=== PATIENT | female | born 2000 | race Caucasian/White ===

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

== ENCOUNTER 2018-03-10 09:08 | Emergency (ER) | payer OTHER ==
[2018-03-10 09:40] VITALS: BP 106/56
[2018-03-10] MEDS ORDERED: Doxycycline (NF) 100 MG TAB PO ONE (10:09)
[2018-03-10] MEDS ORDERED: DOXYcycline CAP(*) 100 MG PO ONE (10:12)
--- NOTE | 2018-03-10 10:17 | ED ---
Bite Injury/Animal - HPI Summary HPI Summary: Complains of raised red itchy bump on the basis of left-sided neck starting last night. Nonpainful, purulent discharge. Patient went running in the [place] last night but Unknown if bug bite or not. History of strong skin reaction to bug bites. Denies fever, cough, sore throat, N/V, CP, SOB, ear pain, abdominal pain, body aches, change in urine or BM. No history is none. - History of Current Complaint Hx Obtained From: Patient, Family/Ash Kier Boiler Hx Last Menstrual Period: 02/22/18 Onset of Injury: Happened hours ago Severity Initially: Mild Pain Intensity: 0 Pain Scale Used: 0-10 Numeric Associated Signs And Symptoms: Positive: Negative <Dimitris Hernandez - Last Filed: 03/10/18 10:11> <Laney Llamas - Last Filed: 03/11/18 11:15> - History of Current Complaint Chief Complaint: [place] Stated Complaint: SKIN COMPLAINT Time Seen by Provider: 03/10/18 09:50 - Allergies/Home Medications Allergies/Adverse Reactions: Allergies Allergy/AdvReac Type Severity Reaction Status Date / Time No Known Allergies Allergy Unverified 03/10/18 09:31 Home Medications: Home Medications Cholecalciferol TAB* [Vitamin D TAB*] 1,000 unit PO DAILY 03/10/18 [History Confirmed 03/10/18] Cyanocobalamin TAB* [Vitamin B12 TAB*] 1,000 mcg PO DAILY 03/10/18 [History Confirmed 03/10/18] Haugen-3S/Dha/Epa/Fish Oil [Fish Oil Triple Strength] 1 cap PO DAILY 03/10/18 [ History Confirmed 03/10/18] PMH/Surg Hx/FS Hx/Imm Hx Endocrine/Hematology History: Denies: Hx Diabetes, Hx Thyroid Disease Cardiovascular History: Denies: Hx Hypertension, Hx Pacemaker/ICD Respiratory History: Denies: Hx Asthma, Hx Chronic Obstructive Pulmonary Disease (COPD) GI History: Denies: Hx Ulcer History: Denies: Hx Renal Disease Musculoskeletal History: Denies: Hx Rheumatoid Arthritis, Hx Osteoporosis Sensory History: Denies: Hx Hearing Aid Psychiatric History: Denies: Hx Panic Disorder Infectious Disease History: No Infectious Disease History: Denies: Hx Hepatitis, Hx Human Immunodeficiency Virus (HIV), Traveled Outside the [place] in Last 30 Days - Family History Known Family History: Positive: Unknown - Social History Alcohol Use: None Hx Substance Use: No Substance Use Type: Reports: None Hx Tobacco Use: No Smoking Status (MU): Never Smoked Tobacco <Dimitris Hernandez - Last Filed: 03/10/18 10:11> Review of Systems Constitutional: Negative Eyes: Negative ENT: Negative Cardiovascular: Negative Respiratory: Negative Gastrointestinal: Negative Genitourinary: Negative Musculoskeletal: Negative Skin: Negative Neurological: Negative Psychological: Normal All Other Systems Reviewed And Are Negative: Yes <Dimitris Hernandez - Last Filed: 03/10/18 10:11> Physical Exam - Summary Physical Exam Summary: Raised red bump at base of left neck with white center 2 cm x 1 cm. No purulent drainage. Nonfluctuant. Triage Information Reviewed: Yes Vital Signs On Initial Exam: Initial Vitals Temp Pulse Resp BP Pulse Ox 98.6 F 57 18 106/56 100 03/10/18 09:34 03/10/18 09:34 03/10/18 09:34 03/10/18 09:34 03/10/18 09:34 Vital Signs Reviewed: Yes Appearance: Positive: Well-Appearing Skin: Positive: Warm Head/Face: Positive: Normal Head/Face Inspection Eyes: Positive: Normal ENT: Positive: Normal ENT inspection Neck: Positive: Supple Respiratory/Lung Sounds: Positive: Clear to Auscultation Cardiovascular: Positive: Normal Abdomen Description: Positive: Nontender Musculoskeletal: Positive: Normal Neurological: Positive: Normal Psychiatric: Positive: Normal AVPU Assessment: Alert - Lit Coma Scale Best Eye Response: 4 - Spontaneous Best Motor Response: 6 - Obeys Commands Best Verbal Response: 5 - Oriented Coma Scale Total: 15 <Dimitris Hernandez - Last Filed: 03/10/18 10:11> Vital Signs On Initial Exam: Initial Vitals Temp Pulse Resp BP Pulse Ox 98.6 F 57 18 106/56 100 03/10/18 09:34 03/10/18 09:34 03/10/18 09:34 03/10/18 09:34 03/10/18 09:34 <Laney Llamas - Last Filed: 03/11/18 11:15> Diagnostics - Vital Signs Vital Signs Temp Pulse Resp BP Pulse Ox 03/10/18 09:34 98.6 F 57 18 106/56 100 <Dimitris Hernandez - Last Filed: 03/10/18 10:11> - Vital Signs Vital Signs Temp Pulse Resp BP Pulse Ox 03/10/18 09:34 98.6 F 57 18 106/56 100 <Laney Llamas - Last Filed: 03/11/18 11:15> Bite Injury Course/Dx - Course Course Of Treatment: We will cover tick bite possibility with prophylactic doxycycline. Patient states [place] is leaving the country today so will provide prescription for Keflex in case of cellulitis. Patient has been told to not start Keflex unless signs of cellulitis occur <Dimitris Hernandez - Last Filed: 03/10/18 10:11> <Laney Llamas - Last Filed: 03/11/18 11:15> - Diagnoses Provider Diagnosis: Bug bite Discharge - Sign-Out/Discharge Documenting (check all that apply): Discharge/Admit/Transfer - Billing Disposition and Condition Condition: STABLE Disposition: HOME <Dimitris Hernandez - Last Filed: 03/10/18 10:11> - Billing Disposition and Condition Condition: STABLE Disposition: HOME <Laney Llamas - Last Filed: 03/11/18 11:15> - Discharge Plan Condition: Stable Disposition: HOME Prescriptions: Cephalexin CAP* [Keflex CAP*] 500 mg PO TID 10 Days #30 cap Patient Education Materials: Lyme Disease (ED), Insect Bite or Sting (ED), Tick Bite (ED) Referrals: No Primary Care Phys,NOPCP [Primary Care Provider] - Additional Instructions: Take Keflex only if signs of cellulitis occur, including increasing redness, purulent discharge, fever, pain. Seek medical medical attention for any concerning symptoms Attestation Statement User Type: Provider - I was available for consult. This patient was seen by the RENEE. The patient was not presented to, seen by, or examined by me. -Rafiq <Laney Llamas - Last Filed: 03/11/18 11:15>
== END 2018-03-10 10:31 | disposition home or self-care (01) ==
LOC: UCEAST 09:08
DX: S10.96XA Insect bite of unspecified part of neck, initial encounter (principal); W57.XXXA Bitten or stung by nonvenomous insect and other nonvenomous arthropods, initial encounter; Y93.9 Activity, unspecified; Y92.9 Unspecified place or not applicable
CPT/HCPCS: 99212; A9270-GY; G0463

== ENCOUNTER 2019-03-25 08:44 | Emergency (ER) | payer OTHER ==
[2019-03-25 08:51] VITALS: BP 99/67
--- NOTE | 2019-03-25 09:23 | UC ---
Skin Complaint HPI - HPI Summary HPI Summary: 18-year-old woman comes in with a chief complaint of laceration to her left index finger. Just prior to arrival she was cutting an onion with a kitchen knife and slipped and accidentally cut the distal left index finger. Initially bled quite a bit direct pressure stopped the bleeding. No complaint of weakness or numbness. Patient reports she is up-to-date on her tetanus. - History of Current Complaint Chief Complaint: UCLaceration Time Seen by Provider: 03/25/19 09:11 Stated Complaint: FINGER LAC Hx Last Menstrual Period: 03/18/19 Pain Intensity: 6 - Allergy/Home Medications Allergies/Adverse Reactions: Allergies Allergy/AdvReac Type Severity Reaction Status Date / Time No Known Allergies Allergy Verified 03/25/19 08:51 PMH/Surg Hx/FS Hx/Imm Hx Previously Healthy: Yes - Surgical History Surgical History: None - Family History Known Family History: Positive: Unknown - Social History Alcohol Use: None Substance Use Type: None Smoking Status (MU): Never Smoked Tobacco Review of Systems All Other Systems Reviewed And Are Negative: Yes Constitutional: Positive: Negative Skin: Positive: Other - SEE HPI Eyes: Positive: Negative ENT: Positive: Negative Respiratory: Positive: Negative Cardiovascular: Positive: Negative Gastrointestinal: Positive: Negative Motor: Positive: Negative Neurovascular: Positive: Negative Musculoskeletal: Positive: Negative Neurological: Positive: Negative Psychological: Positive: Negative Is Patient Immunocompromised?: No Physical Exam Triage Information Reviewed: Yes Appearance: Well-Appearing, No Pain Distress, Well-Nourished Vital Signs: Initial Vital Signs Temp 98.2 F 03/25/19 08:47 Pulse 52 03/25/19 08:47 Resp 18 03/25/19 08:47 BP 99/67 03/25/19 08:47 Pulse Ox 99 03/25/19 08:47 Vital Signs Reviewed: Yes Eye Exam: Normal Eyes: Positive: Conjunctiva Clear Neck: Positive: Supple Musculoskeletal Exam: Normal Musculoskeletal: Positive: Strength Intact, ROM Intact Neurological Exam: Normal Neurological: Positive: Alert, Muscle Tone Normal Psychological Exam: Normal Psychological: Positive: Age Appropriate Behavior Skin: Positive: Other - 1CM FLAP LACERATION SC DISTAL LEFT INDEX FINGER. NO ACTIVE BLEEDING. NL SENSATION AND CAP REFILL. Laceration Repair - Laceration Repair 1 Procedure Summary: FLAP LEFT INDEX FINGER Laceration Size After Repair: Length (cm) - 1CM Modified For Repair: No Irrigation With Pressure Irrigation Device: Yes Closure Material: Skin Adhesive Course/Dx - Course Course Of Treatment: GLUE USED - Diagnoses Provider Diagnosis: Laceration of left index finger Discharge - Sign-Out/Discharge Documenting (check all that apply): Patient Departure All imaging exams completed and their final reports reviewed: No Studies - Discharge Plan Condition: Stable Disposition: HOME Patient Education Materials: Finger Laceration (ED), Skin Adhesive Care (ED) Referrals: Brittani Bonilla PA [Primary Care Provider] - Additional Instructions: FOLLOW UP WITH YOUR DOCTOR IF NOT COMPLETELY IMPROVED. GET RECHECKED SOONER IF YOUR CONDITION WORSENS; SIGNS OF INFECTION OR ANY QUESTIONS OR CONCERNS. - Billing Disposition and Condition Condition: STABLE Disposition: Home
== END 2019-03-25 09:39 | disposition home or self-care (01) ==
LOC: UCEAST 08:44
DX: S61.211A Laceration without foreign body of left index finger without damage to nail, initial encounter (principal); W26.0XXA Contact with knife, initial encounter; Y93.89 Activity, other specified; Y92.9 Unspecified place or not applicable
CPT/HCPCS: 12001; 99211; G0463